=== PATIENT | male | born 1935 | race Caucasian/White ===

== ENCOUNTER → 2017-11-21 | Outpatient (CLI) | payer OTHER, MEDICAID ==
[~2017-11-21] MED LIST: AMLO10TA2 PO; AMLO5TAB2 PO; APIX2.5T PO; CETI1CAP PO; CHOL1CAP21 PO; CHOL50004 PO; DONETAB6 PO; GAB100C PO; GABA100C9 PO; GLIM4TAB42 PO; HYDR-4798 PO; INSLANTI SC; LINE600T PO; LORA-154 GT; LORA10CA12 PO; LOSA50TA6 PO; MECL-82 PO; METR250T PO; NAPHDRO11 OP; OMEP20CA74 PO; OXYM0.0594; SITA100T7 PO; TRAZ100T2 PO; TRAZ50TA2 PO
== END | disposition home or self-care (01) ==
LOC: Rad HDHVI 15:00
PROVIDERS: ATTEND Internal Medicine Cardiovascular Disease
DX: I12.0 Hypertensive chronic kidney disease with stage 5 chronic kidney disease or end stage renal disease (principal); N18.6 End stage renal disease
CPT/HCPCS: 93880

== ENCOUNTER → 2017-11-29 | Outpatient (CLI) | payer OTHER, MEDICAID ==
[~2017-11-29] MED LIST changes: +ADENOSINE 84 MG in GIVE UN-DILUTED 0 ML IV ONE; +ADENOSINE 90 MG/30 ML INJ IV ONE
== END | disposition home or self-care (01) ==
LOC: Rad HDHVI 13:53
PROVIDERS: ATTEND Internal Medicine Cardiovascular Disease
DX: I20.9 Angina pectoris, unspecified (principal); I11.0 Hypertensive heart disease with heart failure; I50.33 Acute on chronic diastolic (congestive) heart failure; R42 Dizziness and giddiness; I08.1 Rheumatic disorders of both mitral and tricuspid valves; I49.5 Sick sinus syndrome; E11.21 Type 2 diabetes mellitus with diabetic nephropathy
CPT/HCPCS: 78452; 93005; 93306; 96374; 96375; A9500; J0153

== ENCOUNTER 2017-12-31 03:57 | Inpatient (IN) | payer OTHER, MEDICAID ==
[~2017-12-31] VITALS: Ht 165.1 cm; Wt 98.0 kg
[2017-12-31] MEDS ORDERED: ASPirin-EC 325mg tab PO ONE (05:00)
[2017-12-31] MEDS ORDERED: NITROGLYCERIN 0.2MG/HR TOPICAL PATCH TD ONE (05:00)
[2017-12-31] MEDS ORDERED: TEMAZEPAM 15 MG CAP PO PRN (06:30)
[2017-12-31] MEDS ORDERED: ONDANSETRON HCL 4 MG/2 ML VIAL IV PRN (06:30)
[2017-12-31] MEDS ORDERED: DOCUSATE SOD 100 MG CAP PO PRN (06:30)
[2017-12-31] MEDS ORDERED: DEXTROSE (50%) 50ML SYRG IV PRN (06:30)
[2017-12-31] MEDS ORDERED: MORPHINE SULFATE 4 MG/ML SYR/VIAL IV PRN (06:30)
[2017-12-31] MEDS ORDERED: ATORVASTATIN 20 MG TAB PO ONE (06:30)
[2017-12-31] MEDS ORDERED: HYDROcodone-ACET 5/325MG TAB PO PRN (06:30)
[2017-12-31] MEDS ORDERED: NITROGLYCERIN 0.4 MG SL TAB SL PRN (06:30)
[2017-12-31] MEDS ORDERED: ACETAMINOPHEN 325 MG TAB PO PRN (06:30)
[2017-12-31 06:56] LABS: Basophils # (auto) 0 uL; Basophils % (auto) 0.4 % (0.0-2.0); Eosinophils # (auto) 0.3 uL; Eosinophils % (auto) 3.9 % (0.0-7.0); Hematocrit 36.7 % (41.0-53.0); Hemoglobin 12.3 g/dL (13.5-17.5); Lymphocytes # (auto) 2.3 uL; Lymphocytes % (auto) 30.9 % (10.0-50.0); Mean Corpuscular Hemoglobin 30.9 pg (28.0-32.0); Mean Corpuscular Hgb Conc. 33.6 g/dL (32.0-36.0); Mean Corpuscular Volume 92.1 fL (80.0-100.0); Monocytes # (auto) 0.8 uL; Monocytes % (auto) 10.4 % (0.0-12.0); Neutrophils # (auto) 4.1 uL; Neutrophils % (auto) 54.4 % (37.0-80.0); Platelet Count (auto) 280 10^3/uL (140-450); Red Blood Cells 3.99 10^6/uL (4.5-5.90); Red Cell Distribution Width 13.6 % (11.8-14.3); White Blood Cell 7.5 10^3/uL (4.4-10.8)
[2017-12-31 07:06] LABS: INR 0.98 (0.9-1.15); Partial Thromboplastin Time 29.1 sec (22.64-33.71); Prothrombin Time 10.7 sec (9.37-12.3)
[2017-12-31 07:15] LABS: Alanine Aminotransferase 25 U/L (16-61); Albumin 3.3 g/dL (3.4-5.0); Alkaline Phosphatase 55 U/L (45-117); Anion Gap 6 (5-15); Aspartate Aminotransferase 21 U/L (15-37); BUN/Creatinine Ratio 11.9; Bilirubin, Total 0.2 mg/dL (0.2-1.0); Blood Urea Nitrogen 22 mg/dL (7-18); Calcium 8.8 mg/dL (8.5-10.1); Carbon Dioxide 27 mmol/L (21-32); Chloride 107 mmol/L (98-107); GFR African American 45 mL/min; GFR Non-African American 38 mL/min; Glucose 85 mg/dL (74-106); Magnesium 2.5 mg/dL (1.6-2.6); Potassium 4.2 mmol/L (3.5-5.1); Sodium 140 mmol/L (136-145); Total Protein 7.2 g/dL (6.4-8.2)
[2017-12-31] MEDS: FAMOTIDINE 20 MG TAB PO SCH ×2 (10:00→23:05)
[2017-12-31] MEDS: APIXABAN 2.5 MG TAB PO SCH ×2 (10:00→23:05)
[2017-12-31] MEDS: amLODIPine BESYLATE 5 MG TAB PO SCH (10:00)
[2017-12-31] MEDS ORDERED: MORPHINE SULF(PF) 0.5MG/ML 10ML VIAL ONE (10:57)
[2017-12-31] MEDS ORDERED: MIDAZOLAM HCL 1MG/1ML-2 ML VIAL ONE (10:58)
[2017-12-31] MEDS ORDERED: SODIUM CHLORIDE LOCK 0 ML ONE (10:58)
[2017-12-31] MEDS ORDERED: OXYTOCIN 10 UNIT/ML 10ML VIAL ONE (10:58)
[2017-12-31] MEDS ORDERED: ceFAZolin 1GM VL ONE (10:58)
[2017-12-31] MEDS ORDERED: fentaNYL CITRATE 100 MCG/2 ML VL ONE (10:58)
[2017-12-31] MEDS: InsuLIN REG 1unit/0.01ml Soln (100units/ml) SC SCH ×2 (12:00→18:00)
[2017-12-31] MEDS: ACCU-CHEK COMFORT CURVE STRIP VI SCH ×2 (12:00→18:30)
[2017-12-31 13:56] LABS: Cholesterol 177 mg/dL (< 200); HDL Cholesterol 35 mg/dL (40-59); LDL Cholesterol 105 mg/dL (< 100); Triglycerides 252 mg/dL (< 150)
[2017-12-31 15:36] VITALS: BP 99/43
[2017-12-31 17:19] VITALS: BP 133/55
[2017-12-31] MEDS ORDERED: OXYM0.0594 (17:43)
[2017-12-31] MEDS ORDERED: OMEP20CA74 PO (17:43)
[2017-12-31] MEDS ORDERED: INSLANTI SC (17:43)
[2017-12-31] MEDS ORDERED: LORA10CA12 PO (17:43)
[2017-12-31] MEDS ORDERED: CHOL50004 PO (17:43)
[2017-12-31] MEDS ORDERED: LORA-154 GT (17:43)
[2017-12-31] MEDS ORDERED: APIX2.5T PO (17:43)
[2017-12-31] MEDS ORDERED: LOSA50TA6 PO (17:43)
[2017-12-31] MEDS ORDERED: MECL-82 PO (17:43)
[2017-12-31] MEDS ORDERED: GAB100C PO (17:43)
[2017-12-31] MEDS ORDERED: HYDR-4798 PO (17:43)
[2017-12-31] MEDS ORDERED: DONETAB6 PO (17:43)
[2017-12-31] MEDS ORDERED: GLIM4TAB42 PO (17:43)
[2017-12-31] MEDS ORDERED: TRAZ50TA2 PO (17:43)
[2017-12-31] MEDS ORDERED: CETI1CAP PO (17:43)
[2017-12-31] MEDS ORDERED: NAPHDRO11 OP (17:43)
[2017-12-31] MEDS ORDERED: SITA100T7 PO (17:43)
[2017-12-31] MEDS ORDERED: AMLO10TA2 PO (17:43)
[2017-12-31 19:37] VITALS: BP 99/43
[2017-12-31] MEDS: DONEPEZIL HYDROCHLORIDE 5 MG TAB PO SCH (23:04)
[2017-12-31] MEDS: ATORVASTATIN 20 MG TAB PO SCH (23:05)
[2017-12-31 23:26] VITALS: BP 129/62
[2018-01-01] MEDS: ACCU-CHEK COMFORT CURVE STRIP VI SCH ×4 (01:08→18:39)
[2018-01-01 03:46] VITALS: BP 129/62
[2018-01-01 05:32] VITALS: BP 116/58
[2018-01-01] MEDS: InsuLIN REG 1unit/0.01ml Soln (100units/ml) SC SCH ×4 (06:00→18:39)
[2018-01-01 08:01] LABS: Urine Bacteria NONE SEEN /hpf (None Seen); Urine Blood Negative /uL (Negative); Urine Specific Gravity 1.012 (1.001-1.035); Urine WBC <1 /hpf (0 - 3)
[2018-01-01 08:03] LABS: Basophils # (auto) 0 uL; Basophils % (auto) 0.3 % (0.0-2.0); Eosinophils # (auto) 0.2 uL; Eosinophils % (auto) 2.6 % (0.0-7.0); Hematocrit 37.4 % (41.0-53.0); Hemoglobin 12.5 g/dL (13.5-17.5); Lymphocytes # (auto) 2.1 uL; Lymphocytes % (auto) 28.1 % (10.0-50.0); Mean Corpuscular Hemoglobin 30.4 pg (28.0-32.0); Mean Corpuscular Hgb Conc. 33.5 g/dL (32.0-36.0); Mean Corpuscular Volume 90.9 fL (80.0-100.0); Monocytes # (auto) 0.7 uL; Monocytes % (auto) 8.8 % (0.0-12.0); Neutrophils # (auto) 4.5 uL; Neutrophils % (auto) 60.2 % (37.0-80.0); Platelet Count (auto) 308 10^3/uL (140-450); Red Blood Cells 4.12 10^6/uL (4.5-5.90); Red Cell Distribution Width 13.3 % (11.8-14.3); White Blood Cell 7.4 10^3/uL (4.4-10.8)
[2018-01-01 08:06] LABS: Potassium 4.2 mmol/L (3.5-5.1)
[2018-01-01 08:17] LABS: Albumin 3.6 g/dL (3.4-5.0); Calcium 9.1 mg/dL (8.5-10.1)
[2018-01-01 08:26] LABS: Bilirubin, Total 0.4 mg/dL (0.2-1.0); Total Protein 7.2 g/dL (6.4-8.2)
[2018-01-01 09:35] VITALS: BP 135/66
[2018-01-01] MEDS: APIXABAN 2.5 MG TAB PO SCH ×2 (10:00→14:53)
[2018-01-01] MEDS: FAMOTIDINE 20 MG TAB PO SCH ×2 (10:00→22:15)
[2018-01-01] MEDS: amLODIPine BESYLATE 5 MG TAB PO SCH (11:01)
[2018-01-01] MEDS: ASPirin 81 mg TAB PO SCH (11:01)
[2018-01-01] MEDS ORDERED: IOHEXOL 350 MG/ML 100ML IJ ONE (13:35)
[2018-01-01] MEDS ORDERED: LIDOCAINE HCL 2 %PF INJ 10ML AMP IJ ONE (13:36)
[2018-01-01] MEDS ORDERED: MIDAZOLAM HCL 1MG/1ML-2 ML VIAL ONE (13:47)
[2018-01-01] MEDS ORDERED: ANGIOMAX 250 MG VIAL IV ONE (13:47)
[2018-01-01] MEDS ORDERED: SODIUM CHL 0.9% 50 ML ONE (13:47)
[2018-01-01] MEDS ORDERED: fentaNYL CITRATE 100 MCG/2 ML VL ONE (13:47)
[2018-01-01] MEDS ORDERED: CLOPIDOGREL 300 MG TAB ONE (14:18)
[2018-01-01 17:26] VITALS: BP 142/81
[2018-01-01 21:38] VITALS: BP 146/69
[2018-01-01] MEDS: DONEPEZIL HYDROCHLORIDE 5 MG TAB PO SCH (22:15)
[2018-01-01] MEDS: ATORVASTATIN 20 MG TAB PO SCH (22:15)
[2018-01-02] MEDS: ACCU-CHEK COMFORT CURVE STRIP VI SCH ×3 (00:07→12:03)
[2018-01-02 05:20] VITALS: BP 130/67
[2018-01-02] MEDS: InsuLIN REG 1unit/0.01ml Soln (100units/ml) SC SCH ×3 (05:37→12:03)
[2018-01-02 09:00] VITALS: BP 153/58
[2018-01-02] MEDS: APIXABAN 2.5 MG TAB PO SCH (09:49)
[2018-01-02] MEDS: FAMOTIDINE 20 MG TAB PO SCH (09:49)
[2018-01-02] MEDS: ASPirin 81 mg TAB PO SCH (09:49)
[2018-01-02] MEDS: amLODIPine BESYLATE 5 MG TAB PO SCH (09:50)
[2018-01-02] MEDS ORDERED: CLOPIDOGREL BISULFATE 75 MG TAB PO SCH (10:00)
[2018-01-02 12:51] VITALS: BP 153/58
[2018-01-02 13:00] VITALS: BP 136/55
[2018-01-08] MEDS ORDERED: GABA100C9 PO (08:44)
[2018-01-08] MEDS ORDERED: TRAZ100T2 PO (08:44)
[2018-01-08] MEDS ORDERED: CHOL1CAP21 PO (08:44)
[2018-01-08] MEDS ORDERED: INSLANTI SC (08:44)
[2018-01-21] MEDS ORDERED: AMLO5TAB2 PO (16:20)
[2018-01-24] MEDS ORDERED: METR250T PO (10:36)
[2018-01-24] MEDS ORDERED: LINE600T PO (10:36)
== END 2018-01-02 15:50 | disposition home or self-care (01) | DRG 247 ==
LOC: EDBD 03:57 → ER 04:01 → TELE 04:02 → TELE-WESTW 14:41
PROVIDERS: ADMIT Nurse Practitioner; ATTEND Internal Medicine Pulmonary Disease
PROC: 027034Z Dilation of Coronary Artery, One Artery with Drug-eluting Intraluminal Device, Percutaneous Approach (ICD-10-PCS; principal; 2018-01-01)
PROC: B2111ZZ Fluoroscopy of Multiple Coronary Arteries using Low Osmolar Contrast (ICD-10-PCS; 2018-01-01)
PROC: 4A023N7 Measurement of Cardiac Sampling and Pressure, Left Heart, Percutaneous Approach (ICD-10-PCS; 2018-01-01)
DX: I25.110 Atherosclerotic heart disease of native coronary artery with unstable angina pectoris (principal); E11.22 Type 2 diabetes mellitus with diabetic chronic kidney disease; I31.3 Pericardial effusion (noninflammatory); I49.5 Sick sinus syndrome; E44.1 Mild protein-calorie malnutrition; F03.90 Unspecified dementia, unspecified severity, without behavioral disturbance, psychotic disturbance, mood disturbance, and anxiety; E78.5 Hyperlipidemia, unspecified; I12.9 Hypertensive chronic kidney disease with stage 1 through stage 4 chronic kidney disease, or unspecified chronic kidney disease; N18.3 Chronic kidney disease, stage 3 (moderate); I48.0 Paroxysmal atrial fibrillation; I25.2 Old myocardial infarction; Z98.61 Coronary angioplasty status; Z86.73 Personal history of transient ischemic attack (TIA), and cerebral infarction without residual deficits; Z79.01 Long term (current) use of anticoagulants; Z68.36 Body mass index [BMI] 36.0-36.9, adult; Z88.0 Allergy status to penicillin; Z88.2 Allergy status to sulfonamides; Z88.8 Allergy status to other drugs, medicaments and biological substances; Z90.49 Acquired absence of other specified parts of digestive tract
CPT/HCPCS: 36415; 71045; 80053; 80061; 81001; 82962; 83735; 83880; 84484; 85025; 85379; 85610; 85730; 86850; 86900; 86901; 92928; 93005; 93458; 94660; 99152; C1874; J0690; J1815; J2250; J2590

== ENCOUNTER → 2018-01-07 | Outpatient (CLI) | payer OTHER, MEDICAID ==
[~2018-01-07] MED LIST changes: -ADENOSINE 84 MG in GIVE UN-DILUTED 0 ML IV ONE; -ADENOSINE 90 MG/30 ML INJ IV ONE
[2018-01-07 10:00] VITALS: BP 134/61
[2018-01-07 16:17] LABS: Basophils # (auto) 0 uL; Basophils % (auto) 0.5 % (0.0-2.0); Eosinophils # (auto) 0.2 uL; Eosinophils % (auto) 2.8 % (0.0-7.0); Hematocrit 35.1 % (41.0-53.0); Hemoglobin 11.8 g/dL (13.5-17.5); Lymphocytes # (auto) 2.1 uL; Lymphocytes % (auto) 29.8 % (10.0-50.0); Mean Corpuscular Hgb Conc. 33.7 g/dL (32.0-36.0); Mean Corpuscular Volume 91.9 fL (80.0-100.0); Monocytes # (auto) 0.5 uL; Monocytes % (auto) 7.6 % (0.0-12.0); Neutrophils # (auto) 4.2 uL; Neutrophils % (auto) 59.3 % (37.0-80.0); Nucleated Red Blood Cells % 0.3 %; Platelet Count (auto) 291 10^3/uL (140-450); Red Blood Cells 3.81 10^6/uL (4.5-5.90); Red Cell Distribution Width 13.3 % (11.8-14.3); White Blood Cell 7.1 10^3/uL (4.4-10.8)
[2018-01-07 16:33] LABS: BUN/Creatinine Ratio 15.4; Calcium 9.2 mg/dL (8.5-10.1); Potassium 4.3 mmol/L (3.5-5.1)
[2018-01-07 16:41] LABS: INR 0.96 (0.9-1.15); Partial Thromboplastin Time 29.8 sec (22.64-33.71); Prothrombin Time 10.5 sec (9.37-12.3)
== END | disposition home or self-care (01) ==
LOC: CHF HDHVI 11:53
PROVIDERS: ATTEND Internal Medicine Cardiovascular Disease
DX: Z01.818 Encounter for other preprocedural examination (principal); I70.0 Atherosclerosis of aorta; D64.9 Anemia, unspecified; R79.1 Abnormal coagulation profile; I10 Essential (primary) hypertension
CPT/HCPCS: 36415; 71046; 80048; 85025; 85610; 85730; 93005; G0463

== ENCOUNTER 2018-01-10 06:31 | Inpatient (IN) | payer OTHER, MEDICAID ==
[~2018-01-10] VITALS: Ht 167.6 cm; Wt 101.4 kg
[~2018-01-10 06:31] MED LIST changes: -AMLO5TAB2 PO; -CHOL50004 PO; -GAB100C PO; -LINE600T PO; -LORA10CA12 PO; -METR250T PO; -TRAZ50TA2 PO
[2018-01-10] MEDS ORDERED: VANCOMYCIN 1GM/250ML 250 ML IV ONE ×2 (07:45→07:51)
[2018-01-10] MEDS ORDERED: LIDOCAINE HCL 2 %PF INJ 10ML AMP IJ ONE (07:56)
[2018-01-10] MEDS ORDERED: MIDAZOLAM HCL 1MG/1ML-2 ML VIAL ONE (09:28)
[2018-01-10] MEDS ORDERED: VANCOMYCIN HCL 1000 MG VL ONE (09:28)
[2018-01-10] MEDS ORDERED: fentaNYL CITRATE 100 MCG/2 ML VL ONE (09:28)
[2018-01-10] MEDS: amLODIPine BESYLATE 5 MG TAB PO SCH (10:00)
[2018-01-10] MEDS ORDERED: SODIUM CHLORIDE 0.9% 1,000 ML IV SCH (11:38)
[2018-01-10] MEDS ORDERED: NITROGLYCERIN 0.4 MG SL TAB SL PRN (11:45)
[2018-01-10] MEDS ORDERED: MORPHINE SULFATE 4 MG/ML SYR/VIAL IV PRN (11:45)
[2018-01-10] MEDS ORDERED: ACETAMINOPHEN 325 MG TAB PO PRN (11:45)
[2018-01-10] MEDS: traZODone HCL 50 MG TAB PO SCH ×2 (12:15→22:09)
[2018-01-10] MEDS: GLIMEPIRIDE 2 MG TAB PO SCH ×2 (12:15→22:08)
[2018-01-10] MEDS ORDERED: ERGOCALCIFEROL 50,000 UNIT(1.25MG) CAP PO SCH (12:15)
[2018-01-10 15:00] VITALS: BP 144/66
[2018-01-10] MEDS: GABAPENTIN 100 MG CAP PO SCH ×2 (16:09→22:09)
[2018-01-10 17:00] VITALS: BP 144/66
[2018-01-10 22:00] VITALS: BP 115/67
[2018-01-10] MEDS ORDERED: DONEPEZIL HYDROCHLORIDE 5 MG TAB PO SCH (22:00)
[2018-01-10] MEDS ORDERED: INSULIN LANTUS (GLARGINE) 1 /0.01ml (100units/ml) SC SCH (22:00)
[2018-01-10] MEDS: MECLIZINE HCL 25 MG TAB PO SCH (22:08)
[2018-01-10] MEDS: HYDROcodone-ACET 10/325MG TAB PO SCH (22:10)
[2018-01-10] MEDS: VANCOMYCIN 1GM/250ML 250 ML IV SCH (22:11)
[2018-01-11 05:00] VITALS: BP 129/58
[2018-01-11] MEDS: GABAPENTIN 100 MG CAP PO SCH ×2 (05:39→13:59)
[2018-01-11 09:00] VITALS: BP 151/64
[2018-01-11] MEDS ORDERED: LOSARTAN POTASSIUM 50 MG TAB PO SCH (10:00)
[2018-01-11] MEDS ORDERED: LORATADINE 10 MG TAB PO SCH (10:00)
[2018-01-11] MEDS ORDERED: LORATADINE 10 MG TAB GT SCH (10:00)
[2018-01-11] MEDS ORDERED: OMEPRAZOLE 20MG/10ML ORAL SUSP PO SCH (10:00)
[2018-01-11] MEDS: VANCOMYCIN 1GM/250ML 250 ML IV SCH (10:00)
[2018-01-11] MEDS: MECLIZINE HCL 25 MG TAB PO SCH (10:29)
[2018-01-11] MEDS: amLODIPine BESYLATE 5 MG TAB PO SCH (10:31)
[2018-01-11] MEDS: HYDROcodone-ACET 10/325MG TAB PO SCH (10:33)
[2018-01-11] MEDS: GLIMEPIRIDE 2 MG TAB PO SCH (10:53)
[2018-01-11 13:00] VITALS: BP 158/74
[2018-01-11 14:10] VITALS: BP 158/74
[2018-01-12] MEDS ORDERED: PANTOPRAZOLE 40 MG TAB PO SCH (10:00)
[2018-01-21] MEDS ORDERED: AMLO5TAB2 PO (16:20)
[2018-01-24] MEDS ORDERED: METR250T PO (10:36)
[2018-01-24] MEDS ORDERED: LINE600T PO (10:36)
== END 2018-01-11 15:30 | disposition home or self-care (01) | DRG 244 ==
LOC: CATH 06:31 → TELE-WESTW 06:32
PROVIDERS: ADMIT Internal Medicine Cardiovascular Disease; ATTEND Internal Medicine Cardiovascular Disease
PROC: 02H63JZ Insertion of Pacemaker Lead into Right Atrium, Percutaneous Approach (ICD-10-PCS; principal; 2018-01-10)
PROC: 0JH606Z Insertion of Pacemaker, Dual Chamber into Chest Subcutaneous Tissue and Fascia, Open Approach (ICD-10-PCS; 2018-01-10)
PROC: 02HK3JZ Insertion of Pacemaker Lead into Right Ventricle, Percutaneous Approach (ICD-10-PCS; 2018-01-10)
DX: I49.5 Sick sinus syndrome (principal); E11.9 Type 2 diabetes mellitus without complications; E78.5 Hyperlipidemia, unspecified; I10 Essential (primary) hypertension; I25.10 Atherosclerotic heart disease of native coronary artery without angina pectoris; Z98.61 Coronary angioplasty status; I25.2 Old myocardial infarction; Z82.49 Family history of ischemic heart disease and other diseases of the circulatory system; Z86.73 Personal history of transient ischemic attack (TIA), and cerebral infarction without residual deficits
CPT/HCPCS: 33208; 71045; 82962; 87081; 93005; 99152; C1785; J1815; J2250

== ENCOUNTER 2018-01-15 22:35 | Inpatient (IN) | payer OTHER, MEDICAID ==
[~2018-01-15] VITALS: Ht 167.6 cm; Wt 99.3 kg
[2018-01-15 23:19] LABS: Basophils # (auto) 0 uL; Basophils % (auto) 0.5 % (0.0-2.0); Eosinophils # (auto) 0.3 uL; Eosinophils % (auto) 3.5 % (0.0-7.0); Hematocrit 37.8 % (41.0-53.0); Hemoglobin 12.5 g/dL (13.5-17.5); Lymphocytes # (auto) 2.2 uL; Mean Corpuscular Hemoglobin 30.2 pg (28.0-32.0); Mean Corpuscular Volume 91.7 fL (80.0-100.0); Monocytes # (auto) 0.7 uL; Monocytes % (auto) 8.7 % (0.0-12.0); Neutrophils # (auto) 4.9 uL; Neutrophils % (auto) 60.3 % (37.0-80.0); Platelet Count (auto) 258 10^3/uL (140-450); Red Blood Cells 4.12 10^6/uL (4.5-5.90); Red Cell Distribution Width 13.4 % (11.8-14.3); White Blood Cell 8.1 10^3/uL (4.4-10.8)
[2018-01-15 23:27] LABS: INR 0.95 (0.9-1.15); Partial Thromboplastin Time 28.9 sec (22.64-33.71); Prothrombin Time 10.4 sec (9.37-12.3)
[2018-01-15 23:32] LABS: Alanine Aminotransferase 25 U/L (16-61); Albumin 3.2 g/dL (3.4-5.0); Anion Gap 5 (5-15); Aspartate Aminotransferase 22 U/L (15-37); Blood Urea Nitrogen 32 mg/dL (7-18); Calcium 8.8 mg/dL (8.5-10.1); Carbon Dioxide 26 mmol/L (21-32); Chloride 105 mmol/L (98-107); GFR African American 33 mL/min; GFR Non-African American 27 mL/min; Glucose 240 mg/dL (74-106); Magnesium 2.2 mg/dL (1.6-2.6); Potassium 4.5 mmol/L (3.5-5.1); Sodium 136 mmol/L (136-145)
[2018-01-15 23:37] LABS: Alkaline Phosphatase 61 U/L (45-117); Bilirubin, Total 0.2 mg/dL (0.2-1.0); Total Protein 6.9 g/dL (6.4-8.2)
[2018-01-16] MEDS ORDERED: ONDANSETRON HCL 4 MG/2 ML VIAL IV PRN (06:45)
[2018-01-16] MEDS ORDERED: HYDROcodone-ACET 5/325MG TAB PO PRN (06:45)
[2018-01-16] MEDS ORDERED: ACETAMINOPHEN 500 MG TAB PO PRN (06:45)
[2018-01-16 07:43] LABS: Basophils # (auto) 0 uL; Basophils % (auto) 0.5 % (0.0-2.0); Eosinophils # (auto) 0.3 uL; Eosinophils % (auto) 3.5 % (0.0-7.0); Hemoglobin 11.9 g/dL (13.5-17.5); Lymphocytes # (auto) 2.2 uL; Lymphocytes % (auto) 31.1 % (10.0-50.0); Mean Corpuscular Hemoglobin 30.4 pg (28.0-32.0); Mean Corpuscular Hgb Conc. 33.1 g/dL (32.0-36.0); Monocytes # (auto) 0.6 uL; Monocytes % (auto) 7.9 % (0.0-12.0); Neutrophils # (auto) 4.1 uL; Nucleated Red Blood Cells % 0.1 %; Platelet Count (auto) 244 10^3/uL (140-450); Red Blood Cells 3.91 10^6/uL (4.5-5.90); Red Cell Distribution Width 13.4 % (11.8-14.3); White Blood Cell 7.2 10^3/uL (4.4-10.8)
[2018-01-16] MEDS ORDERED: DEXTROSE (50%) 50ML SYRG IV PRN (08:00)
[2018-01-16] MEDS ORDERED: amLODIPine BESYLATE 5 MG TAB PO SCH (10:00)
[2018-01-16 10:06] LABS: BUN/Creatinine Ratio 12.7; Calcium 8.1 mg/dL (8.5-10.1)
[2018-01-16] MEDS: APIXABAN 2.5 MG TAB PO SCH ×2 (10:32→21:07)
[2018-01-16] MEDS: CLOPIDOGREL BISULFATE 75 MG TAB PO SCH (10:32)
[2018-01-16] MEDS: LOSARTAN POTASSIUM 50 MG TAB PO SCH (10:32)
[2018-01-16 10:56] LABS: Potassium 4.2 mmol/L (3.5-5.1)
[2018-01-16] MEDS ORDERED: SOD CHL 0.45% 1,000 ML IV ONE ×2 (11:45→22:15)
[2018-01-16] MEDS: ACCU-CHEK COMFORT CURVE STRIP VI SCH ×3 (11:52→22:02)
[2018-01-16] MEDS: InsuLIN REG 1unit/0.01ml Soln (100units/ml) SC SCH ×3 (11:56→22:02)
[2018-01-16] MEDS: GABAPENTIN 100 MG CAP PO SCH ×2 (14:33→21:07)
[2018-01-16 14:38] LABS: Urine Bacteria NONE SEEN /hpf (None Seen); Urine Blood Negative /uL (Negative); Urine Specific Gravity 1.007 (1.001-1.035); Urine WBC <1 /hpf (0 - 3)
[2018-01-16] MEDS ORDERED: DONEPEZIL HYDROCHLORIDE 5 MG TAB PO SCH (22:00)
[2018-01-16] MEDS ORDERED: traZODone HCL 50 MG TAB PO SCH (22:00)
[2018-01-16 22:39] VITALS: BP 96/44
[2018-01-17 05:18] VITALS: BP 102/56
[2018-01-17 06:10] LABS: Potassium 4.2 mmol/L (3.5-5.1)
[2018-01-17 06:15] LABS: BUN/Creatinine Ratio 17.2; Calcium 8.6 mg/dL (8.5-10.1)
[2018-01-17] MEDS: GABAPENTIN 100 MG CAP PO SCH (06:27)
[2018-01-17] MEDS: ACCU-CHEK COMFORT CURVE STRIP VI SCH (06:27)
[2018-01-17] MEDS: InsuLIN REG 1unit/0.01ml Soln (100units/ml) SC SCH (06:27)
[2018-01-17 09:00] VITALS: BP 134/69
[2018-01-17] MEDS: CLOPIDOGREL BISULFATE 75 MG TAB PO SCH (09:35)
[2018-01-17] MEDS: LOSARTAN POTASSIUM 50 MG TAB PO SCH (09:36)
[2018-01-17] MEDS: APIXABAN 2.5 MG TAB PO SCH (09:36)
[2018-01-17 10:03] VITALS: BP 134/69
[2018-01-21] MEDS ORDERED: AMLO5TAB2 PO (16:20)
[2018-01-24] MEDS ORDERED: LINE600T PO (10:36)
[2018-01-24] MEDS ORDERED: METR250T PO (10:36)
== END 2018-01-17 11:29 | disposition home or self-care (01) | DRG 637 ==
LOC: EDBD 22:35 → ER 22:44 → TELE 22:45 → TELE-WESTW 01-16 17:49
PROVIDERS: ADMIT Nurse Practitioner Family; ATTEND Internal Medicine
DX: E11.65 Type 2 diabetes mellitus with hyperglycemia (principal); N17.0 Acute kidney failure with tubular necrosis; E44.1 Mild protein-calorie malnutrition; E11.22 Type 2 diabetes mellitus with diabetic chronic kidney disease; I48.91 Unspecified atrial fibrillation; D63.1 Anemia in chronic kidney disease; I12.9 Hypertensive chronic kidney disease with stage 1 through stage 4 chronic kidney disease, or unspecified chronic kidney disease; I25.10 Atherosclerotic heart disease of native coronary artery without angina pectoris; N18.3 Chronic kidney disease, stage 3 (moderate); F03.90 Unspecified dementia, unspecified severity, without behavioral disturbance, psychotic disturbance, mood disturbance, and anxiety; Z68.35 Body mass index [BMI] 35.0-35.9, adult; Z79.899 Other long term (current) drug therapy; Z79.01 Long term (current) use of anticoagulants; Z79.4 Long term (current) use of insulin; Z86.73 Personal history of transient ischemic attack (TIA), and cerebral infarction without residual deficits; Z95.0 Presence of cardiac pacemaker; I25.2 Old myocardial infarction; Z90.49 Acquired absence of other specified parts of digestive tract; Z80.8 Family history of malignant neoplasm of other organs or systems; Z98.61 Coronary angioplasty status
CPT/HCPCS: 36415; 70450; 71045; 72125; 80048; 80053; 81001; 82962; 83735; 83880; 84484; 85025; 85610; 85730; 87081; 93005; 94761; 96360; J1815

== ENCOUNTER → 2018-04-01 | Outpatient (CLI) | payer OTHER, MEDICAID ==
[~2018-04-01] MED LIST changes: -AMLO10TA2 PO; +AMLO5TAB2 PO; +LINE600T PO; +METR250T PO
== END | disposition home or self-care (01) ==
LOC: Rad HDHVI 07:51
PROVIDERS: ATTEND Internal Medicine Cardiovascular Disease
DX: I25.5 Ischemic cardiomyopathy (principal); R06.02 Shortness of breath; I11.0 Hypertensive heart disease with heart failure; I50.43 Acute on chronic combined systolic (congestive) and diastolic (congestive) heart failure; E11.9 Type 2 diabetes mellitus without complications
CPT/HCPCS: 93306